=== PATIENT | male | born 1945 | race Caucasian/White ===

== ENCOUNTER 2016-10-03 18:35 | Observation (INO) | payer MEDICARE, OTHER ==
[2016-10-03] VITALS (9 sets, daily range): BP systolic 151–168; BP diastolic 82–95; PULSE 53–63; RESP 12–20; TEMP 97.9–98.1; O2SAT 98–99
[~2016-10-03] VITALS: Ht 170.2 cm; Wt 78.0 kg
[~2016-10-03 18:35] MED LIST: 1-ME1LIQ OR; ADVA100A INH; ASPI81TA82 PO; LISI10TA PO; NIAS10004 PO; NITR.4 SL; SIMV40TA OR
--- NOTE | 2016-10-03 19:26 | PD ---
HPI Chief Complaint: Chest Pain Time Seen by Provider: 18:59 Travel History International Travel<30 days: No Contact w/Intl Traveler<30days: No Traveled to known affect area: No History of Present Illness HPI A 71 year old male presents to the emergency department for chest pain. The pain started 2.5 hours ago while riding a stationary bike at physical therapy. The pain is directly over the sternum and described as feeling like he was "hit with a baseball" The pain does not radiate and has stayed the same since the onset. When the pain started he also was diaphoretic and had some shortness of breath. He denies nausea and vomiting. He was administered Nitro by EMS and took a baby aspirin earlier this morning, neither of which provided relief. The patient has a history of hypertension, hyperlipidemia, 2-3 previous heart attacks, and 2 bypass surgeries. 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 Patient denies any cough, nausea, vomiting, or abdominal pain. Symptoms are moderate, worse with riding a stationary bicycle, and there are no current alleviating factors. The patient's primary physician is Dr. Jaren De La Torre. History Past Medical History Narrative Medical 2-3 prior Myocardial infarctions 2 bypass surgeries Hypertension Hyperlipidemia Parkinson's disease Past Surgical History Narrative Surgical CABG Social History Alcohol Use: No Tobacco Use: No Allergies-Medications (Allergen,Severity, Reaction): Coded Allergies: Sulfa (Sulfonamide Antibiotics) (Unverified Allergy, Severe, "I CODED ON SULFA", 10/03/16) bethanechol (Unverified Allergy, Severe, "I CODED ON IT", 10/03/16) codeine (Unverified Allergy, Severe, NAUSEA AND VOMITING, 10/03/16) amoxicillin (Unverified Allergy, Intermediate, RASH, 10/03/16) Reported Meds & Prescriptions Reported Meds & Active Scripts Active Reported Hm Antacid 200-200-20 mg/5Ml (Alum & Mag Hydrox-Simethicone) 1 Ryanne Ryanne 30 Ml .XX Milk of Magnesia Liq (Magnesium Hydroxide) 400 Mg/5 Ml Susp 30 Ml PO DAILY PRN Bisacodyl Supp (Bisacodyl) 10 Mg Supp 10 Mg RECTAL DAILY PRN Tylenol (Acetaminophen) 325 Mg Tab 325 Mg PO Q6H PRN Carbidopa-Levodopa 25-100 Mg Tab 1 Tab PO Q8HR Simvastatin 20 Mg Tab 20 Mg PO HS Polyethylene Glycol 3350 Powder (Polyethylene Glycol) 17 Gm Pow 17 Gm PO DAILY Lasix (Furosemide) 40 Mg Tab 40 Mg PO DAILY Isosorbide Mononitrate ER (Isosorbide Mononitrate) 60 Mg Tab 60 Mg PO DAILY PRN Fenofibrate 145 Mg Tab 145 Mg PO DAILY Donepezil 10 Mg Tab 10 Mg PO HS Docusate Sodium 100 Mg Cap 100 Mg PO DAILY PRN Vitamin D (Cholecalciferol) 2,000 Unit Tab DAILY Amlodipine (Amlodipine Besylate) 10 Mg Tab 10 Mg PO EVERY OTHER DAY Spironolactone 25 Mg Tab 25 Mg PO DAILY Review of Systems Except as stated in HPI: all other systems reviewed are Neg General / Constitutional: Positive: Chills HENT: Positive: Lightheadedness Cardiovascular: Positive: Chest Pain or Discomfort, Diaphoresis Respiratory: Positive: Shortness of Breath Gastrointestinal: No: Nausea, Vomiting Musculoskeletal: Positive: Weakness Neurologic: Positive: Dizziness Physical Exam Narrative CONSTITUTIONAL/GENERAL: Well Developed and Well Nourished 71-year-old male who is in no acute respiratory distress. SKIN: No jaundice, rashes, or lesions. HEAD: Atraumatic. Normocephalic. EYES: No injection or drainage. ENT: Hearing grossly normal. Nose without bleeding or purulent drainage. Throat without visible erythema, exudates, masses, or lesions. NECK: Trachea midline. Supple, nontender. CARDIOVASCULAR: Regular rate and rhythm without murmurs, gallops, or rubs. No JVD. Peripheral pulses symmetric. Well-healed midline sternal scar. RESPIRATORY/CHEST: Symmetric, unlabored respirations. Clear to auscultation. Breath sounds equal bilaterally. No wheezes, rales, or rhonchi. tenderness to palpation directly over sternum. GASTROINTESTINAL: Abdomen soft, non-tender, nondistended. No rebound tenderness , guarding, or rigidity. GENITOURINARY: Without palpable bladder distension. MUSCULOSKELETAL: Extremities without clubbing, cyanosis, or edema. No calf tenderness. Data Data Last Documented VS Vital Signs Date Time Temp Pulse Resp B/P (MAP) Pulse Ox O2 Delivery O2 Flow Rate FiO2 10/03/16 20:01 99 Nasal Cannula 3.00 10/03/16 20:00 12 10/03/16 19:57 61 8/22/17 19:15 98.1 Orders Orders Complete Blood Count With Diff (10/03/16 19:15) Comprehensive Metabolic Panel (10/03/16 19:15) Troponin I (10/03/16 19:15) Electrocardiogram (10/03/16 ) Act Partial Throm Time (Ptt) (10/03/16 19:15) Magnesium (Mg) (10/03/16 19:41) Chest, Single Ap (10/03/16 19:41) Ecg Monitoring (10/03/16 19:41) Bilateral Bp Monitoring (10/03/16 19:41) Iv Access Insert/Monitor (10/03/16 19:41) Oximetry (10/03/16 19:41) Oxygen Administration (10/03/16 19:41) Aspirin Chew (Aspirin Chew) (10/03/16 19:45) Morphine Inj (Morphine Inj) (10/03/16 19:45) Nitroglycerin 2% Oint (Nitroglycerin 2% (10/03/16 19:45) Sodium Chloride 0.9% Flush (Ns Flush) (10/03/16 19:45) Sodium Chlorid 0.9% 500 Ml Inj (Ns 500 M (10/03/16 19:45) Labs Laboratory Tests Test 10/03/16 19:05 White Blood Count 7.4 TH/MM3 Red Blood Count 4.69 MIL/MM3 Hemoglobin 13.8 GM/DL Hematocrit 41.9 % Mean Corpuscular Volume 89.4 FL Mean Corpuscular Hemoglobin 29.5 PG Mean Corpuscular Hemoglobin Concent 33.0 % Red Cell Distribution Width 13.6 % Platelet Count 222 TH/MM3 Mean Platelet Volume 8.8 FL Neutrophils (%) (Auto) 60.8 % Lymphocytes (%) (Auto) 22.7 % Monocytes (%) (Auto) 12.6 % Eosinophils (%) (Auto) 3.0 % Basophils (%) (Auto) 0.9 % Neutrophils # (Auto) 4.5 TH/MM3 Lymphocytes # (Auto) 1.7 TH/MM3 Monocytes # (Auto) 0.9 TH/MM3 Eosinophils # (Auto) 0.2 TH/MM3 Basophils # (Auto) 0.1 TH/MM3 CBC Comment DIFF FINAL Differential Comment Activated Partial Thromboplast Time 27.8 SEC Blood Urea Nitrogen 19 MG/DL Creatinine 1.44 MG/DL Random Glucose 102 MG/DL Total Protein 7.0 GM/DL Albumin 3.8 GM/DL Calcium Level 9.1 MG/DL Alkaline Phosphatase 30 U/L Aspartate Amino Transf (AST/SGOT) 12 U/L Alanine Aminotransferase (ALT/SGPT) 8 U/L Total Bilirubin 0.3 MG/DL Sodium Level 136 MEQ/L Potassium Level 3.6 MEQ/L Chloride Level 102 MEQ/L Carbon Dioxide Level 26.9 MEQ/L Anion Gap 7 MEQ/L Estimat Glomerular Filtration Rate 48 ML/MIN Magnesium Level 2.2 MG/DL Troponin I LESS THAN 0.02 NG/ML MDM Medical Decision Making Medical Screen Exam Complete: Yes Emergency Medical Condition: Yes Medical Record Reviewed: Yes Interpretation(s) EKG reveals normal sinus rhythm with a rate of 64. Q wave noted in lead 3 and aVF. Left axis deviation. Laboratory Tests Test 10/03/16 19:05 White Blood Count 7.4 TH/MM3 Red Blood Count 4.69 MIL/MM3 Hemoglobin 13.8 GM/DL Hematocrit 41.9 % Mean Corpuscular Volume 89.4 FL Mean Corpuscular Hemoglobin 29.5 PG Mean Corpuscular Hemoglobin Concent 33.0 % Red Cell Distribution Width 13.6 % Platelet Count 222 TH/MM3 Mean Platelet Volume 8.8 FL Neutrophils (%) (Auto) 60.8 % Lymphocytes (%) (Auto) 22.7 % Monocytes (%) (Auto) 12.6 % Eosinophils (%) (Auto) 3.0 % Basophils (%) (Auto) 0.9 % Neutrophils # (Auto) 4.5 TH/MM3 Lymphocytes # (Auto) 1.7 TH/MM3 Monocytes # (Auto) 0.9 TH/MM3 Eosinophils # (Auto) 0.2 TH/MM3 Basophils # (Auto) 0.1 TH/MM3 CBC Comment DIFF FINAL Differential Comment Activated Partial Thromboplast Time 27.8 SEC Blood Urea Nitrogen 19 MG/DL Creatinine 1.44 MG/DL Random Glucose 102 MG/DL Total Protein 7.0 GM/DL Albumin 3.8 GM/DL Calcium Level 9.1 MG/DL Alkaline Phosphatase 30 U/L Aspartate Amino Transf (AST/SGOT) 12 U/L Alanine Aminotransferase (ALT/SGPT) 8 U/L Total Bilirubin 0.3 MG/DL Sodium Level 136 MEQ/L Potassium Level 3.6 MEQ/L Chloride Level 102 MEQ/L Carbon Dioxide Level 26.9 MEQ/L Anion Gap 7 MEQ/L Estimat Glomerular Filtration Rate 48 ML/MIN Magnesium Level 2.2 MG/DL Troponin I LESS THAN 0.02 NG/ML Chest x-ray reveals postoperative changes. Differential Diagnosis Differential diagnoses includes acute coronary syndrome, angina, pulmonary embolism, pneumonia, pericardial effusion, deconditioning. Narrative Course IV was established, labs are drawn and sent, and the patient was placed on cardiac telemetry monitoring and continuous pulse oximetry monitoring. The patient received aspirin 160 kg orally, Nitropaste, and IV fluids. Chest x- rays obtained. EKG was ordered and interpreted. Chest x-ray reveals postoperative changes. Initial troponin is negative. The patient has multiple risk factors with chest pain while riding a stationary bike, therefore, will be 23 hour observation to chest pain center for serial cardiac enzymes and further evaluation by cardiology. Physician Communication Physician Communication The patient will be 23 hour observation to chest pain center for serial cardiac enzymes and further evaluation by cardiology. Diagnosis Primary Impression: Chest pain Qualified Codes: R07.9 - Chest pain, unspecified Admitting Information Admitting Physician Requests: Observation Condition: Stable Lv Zambrano MD Oct 03, 2016 19:26
[2016-10-03] MEDS ORDERED: SPIR25TA PO (19:42)
[2016-10-03] MEDS ORDERED: ISOS60TA PO (19:42)
[2016-10-03] MEDS ORDERED: ALUM1SUS (19:42)
[2016-10-03] MEDS ORDERED: MILKSUS PO (19:42)
[2016-10-03] MEDS ORDERED: TYLE325T PO (19:42)
[2016-10-03] MEDS ORDERED: AMLO10TA2 PO (19:42)
[2016-10-03] MEDS ORDERED: FURO1TAB60 PO (19:42)
[2016-10-03] MEDS ORDERED: POLY17S PO (19:42)
[2016-10-03] MEDS ORDERED: FENO145T2 PO (19:42)
[2016-10-03] MEDS ORDERED: VITA20003 (19:42)
[2016-10-03] MEDS ORDERED: SIMV20TA PO (19:42)
[2016-10-03] MEDS ORDERED: DONE10TA7 PO (19:42)
[2016-10-03] MEDS ORDERED: BISA10SU3 RECTAL (19:42)
[2016-10-03] MEDS ORDERED: DOCU100C PO (19:42)
[2016-10-03] MEDS ORDERED: CARB25TA9 PO (19:42)
[2016-10-03] MEDS ORDERED: SODIUM CHLORID 0.9% 500 ML INJ 500 ML IV ONE (19:45)
[2016-10-03] MEDS ORDERED: SODIUM CHLORIDE 0.9% FLUSH 10 ML FLUSH IVF PRN (19:45)
[2016-10-03] MEDS ORDERED: MORPHINE SULFATE 4 MG/ML INJ IV PUSH ONE (19:45)
[2016-10-03] MEDS ORDERED: ASPIRIN 81 MG CHEW TAB PO ONE ×2 (19:45→21:15)
[2016-10-03] MEDS ORDERED: NITROGLYCERIN 2% OINT 1 GM PACKET TOP ONE (19:45)
[2016-10-03 19:48] LABS: AUTOMATED NEUTROPHIL # 4.5 TH/MM3 (1.8-7.7); BASOPHIL # 0.1 TH/MM3 (0-0.2); BASOPHIL % 0.9 % (0.0-2.0); EOSINOPHIL # 0.2 TH/MM3 (0-0.4); HEMATOCRIT 41.9 % (39.0-51.0); HEMO FLAGS DIFF FINAL; LYMPH % 22.7 % (9.0-44.0); LYMPHOCYTE # 1.7 TH/MM3 (1.0-4.8); MEAN CELL VOLUME 89.4 FL (80.0-100.0); MEAN CORPUSCULAR HEMOGLOBIN 29.5 PG (27.0-34.0); MONO % 12.6 % (0.0-8.0); NEUT % 60.8 % (16.0-70.0); PLATELET COUNT 222 TH/MM3 (150-450); RED BLOOD COUNT 4.69 MIL/MM3 (4.50-5.90); RED CELL DISTRIBUTION WIDTH 13.6 % (11.6-17.2); WHITE BLOOD COUNT 7.4 TH/MM3 (4.0-11.0)
[2016-10-03 19:53] LABS: APTT (PATIENT) 27.8 SEC (24.3-30.1)
[2016-10-03 20:14] LABS: ALKALINE PHOSPHATASE 30 U/L (45-117); ALT (GPT) 8 U/L (12-78); TOTAL BILIRUBIN ADULT 0.3 MG/DL (0.2-1.0)
[2016-10-03 20:20] LABS: ANION GAP 7 MEQ/L (5-15); AST (GOT) 12 U/L (15-37); BICARBONATE 26.9 MEQ/L (21.0-32.0); BLOOD UREA NITROGEN 19 MG/DL (7-18); CHLORIDE 102 MEQ/L (98-107); GLOMERULAR FILTRATION RATE 48 ML/MIN (>89); POTASSIUM 3.6 MEQ/L (3.5-5.1); SODIUM (NA) 136 MEQ/L (136-145)
--- NOTE | 2016-10-03 21:08 | RADRPT ---
EXAM DATE/TIME: 10/03/2016 19:58 [facility] COMPARISON: No previous studies available for comparison. INDICATIONS : Chest pain. MEDICAL HISTORY : Unobtainable. SURGICAL HISTORY : CABG. ENCOUNTER: Initial ACUITY: 1 day PAIN SCORE: 5/10 LOCATION: Bilateral chest FINDINGS: Portable AP view of the chest demonstrates a normal-sized cardiac silhouette in this patient post med damir sternotomy and CABG. Cardiac device overlies the left chest. No effusion, consolidation, or pneum othorax is identified. Bones and soft tissues demonstrate no acute finding. There has been prior bila teral shoulder arthroplasty. CONCLUSION: No acute cardiopulmonary abnormality is identified. Zi Flores MD on October 03, 2016 at 21:05 Board Certified Radiologist. This report was verified electronically.
[2016-10-03] MEDS ORDERED: ACETAMINOPHEN/HYDROcodone 325 MG/7.5 MG TAB PO PRN (21:15)
[2016-10-03] MEDS ORDERED: MORPHINE SULFATE 4 MG/ML INJ IV PRN (21:15)
[2016-10-03] MEDS ORDERED: NITROGLYCERIN 0.4 MG SL 25 TABS/BTL SL PRN (21:15)
[2016-10-03] MEDS ORDERED: ACETAMINOPHEN 500 MG CPLT PO PRN (21:15)
[2016-10-03] MEDS ORDERED: SODIUM CHLORIDE 0.9% FLUSH 10 ML FLUSH IV FLUSH PRN (21:15)
[2016-10-04] VITALS (7 sets, daily range): BP systolic 118–172; BP diastolic 77–87; PULSE 49–107; RESP 16–19; TEMP 97.7–98.3; O2SAT 93–98
[2016-10-04 00:23] LABS: CREATINE KINASE 85 U/L (39-308)
[2016-10-04 02:01] LABS: CREATINE KINASE 84 U/L (39-308)
--- NOTE | 2016-10-04 08:18 | HHI.HP ---
HPI Primary Care Physician Jaren De La Torre DO Chief Complaint Chest pain History of Present Illness 71-year-old male with known coronary artery disease, CABG 2 (6 years ago), Parkinson's disease, and hypertension presents to emergency room for further evaluation of chest pain. Onset 4:30 p.m. yesterday. Location substernal. Characterized as "like I was hit with a baseball." Pain came on quickly. Duration has been constant. Associated symptoms initially included shortness of breath and diaphoresis. No nausea or vomiting. Denies similar pain in the past stating past WI's for "silent." No known precipitating or relieving factors. 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 He attended physical therapy yesterday, rides a stationary bike. Reports chest pain-free during exercise and chest pain did not begin until 2 hours after therapy completed. Review of Systems General: No fatigue,weakness, fever, chills, recent illness, or change in appetite. Has been in his general state of health and currently in physical therapy for Parkinson's disease. HEENT: No WYMAN, no nasal congestion or drainage CV: Continues to have chest pressure as stated above. RESP: No SOB, cough, or sputum production GI: No nausea, vomiting, bowel changes, melena, or blood in the stool. : No dysuria EXT: No lower leg edema, no paraesthesias MS: No discomfort or change in ROM NEURO: History of Parkinson's disease. No LOC, motor/sensory deficits SKIN: No rashes, no concerning lesions Past Family Social History Allergies: Coded Allergies: Sulfa (Sulfonamide Antibiotics) (Unverified Allergy, Severe, "I CODED ON SULFA", 10/03/16) bethanechol (Unverified Allergy, Severe, "I CODED ON IT", 10/03/16) codeine (Unverified Allergy, Severe, NAUSEA AND VOMITING, 10/03/16) amoxicillin (Unverified Allergy, Intermediate, RASH, 10/03/16) Past Medical History Hypertension, coronary artery disease, asthma, Parkinson's disease, hyperlipidemia, WI 2 Past Surgical History CABG 2 (6 years ago) Reported Medications Active Reported Hm Antacid 200-200-20 mg/5Ml (Alum & Mag Hydrox-Simethicone) 1 Ryanne Ryanne 30 Ml .XX Milk of Magnesia Liq (Magnesium Hydroxide) 400 Mg/5 Ml Susp 30 Ml PO DAILY PRN Bisacodyl Supp (Bisacodyl) 10 Mg Supp 10 Mg RECTAL DAILY PRN Tylenol (Acetaminophen) 325 Mg Tab 325 Mg PO Q6H PRN Carbidopa-Levodopa 25-100 Mg Tab 1 Tab PO Q8HR Simvastatin 20 Mg Tab 20 Mg PO HS Polyethylene Glycol 3350 Powder (Polyethylene Glycol) 17 Gm Pow 17 Gm PO DAILY Lasix (Furosemide) 40 Mg Tab 40 Mg PO DAILY Isosorbide Mononitrate ER (Isosorbide Mononitrate) 60 Mg Tab 60 Mg PO DAILY PRN Fenofibrate 145 Mg Tab 145 Mg PO DAILY Donepezil 10 Mg Tab 10 Mg PO HS Docusate Sodium 100 Mg Cap 100 Mg PO DAILY PRN Vitamin D (Cholecalciferol) 2,000 Unit Tab DAILY Amlodipine (Amlodipine Besylate) 10 Mg Tab 10 Mg PO EVERY OTHER DAY Spironolactone 25 Mg Tab 25 Mg PO DAILY Active Ordered Medications Current Medications Medications (Trade) Dose Ordered Sig/Isabelle Route Start Time Stop Time Status Last Admin (NS Flush) 2 ml UNSCH PRN IV FLUSH 10/03/16 21:15 (NS Flush) 2 ml BID IV FLUSH 10/04/16 09:00 (Tylenol) 500 mg Q4H PRN PO 10/03/16 21:15 ([place] 7.5-325 Mg) 1 tab Q4H PRN PO 10/03/16 21:15 (Morphine Inj) 2 mg Q4H PRN IV 10/03/16 21:15 (Nitrostat Sl) 0.4 mg Q5M PRN SL 10/03/16 21:15 10/04/16 00:47 Family History Social History Known coronary artery disease, hypertension and hyperlipidemia. No known diabetes. Lifelong nonsmoker. Denies any alcohol or illegal drug use. Resides at [facility]. Past Cardiac Testing 07/08/2014 Acostaiscan (Completed at Dr. Abilio Figueroa office)-unremarkable study (spoke with nurse at Dr. Figueroa's office) Has an appointment scheduled for 2016 Physical Exam Vital Signs Vital Signs Date Time Temp Pulse Resp B/P (MAP) Pulse Ox O2 Delivery O2 Flow Rate FiO2 10/04/16 07:50 93 21 10/04/16 04:33 97.7 49 18 166/79 (108) 98 10/04/16 03:53 51 10/04/16 00:52 18 10/04/16 00:16 55 10/03/16 23:46 98.1 53 20 164/92 (116) 98 10/03/16 23:17 10/03/16 22:45 58 12 157/95 (115) 98 Nasal Cannula 2.00 10/03/16 22:15 98 Nasal Cannula 2.00 10/03/16 22:00 54 12 168/91 (116) 99 Nasal Cannula 3.00 10/03/16 21:00 54 12 154/83 (106) 99 Nasal Cannula 3.00 10/03/16 20:01 99 Nasal Cannula 3.00 10/03/16 20:00 12 99 Nasal Cannula 3.00 10/03/16 20:00 60 12 152/91 (111) 99 Nasal Cannula 3.00 10/03/16 19:57 61 152/91 (111) 10/03/16 19:15 98.1 60 12 151/84 (106) 98 Nasal Cannula 3.00 10/03/16 19:07 100 3.00 10/03/16 18:54 97.9 63 14 152/82 (105) 99 Nasal Cannula 4.00 Physical Exam GENERAL: Alert WN, WD, NAD, pleasant, elderly male HEAD: NC, AT EYES: Sclera clear, conjunctiva without injection, pupils equal and round ENT: Mucous membranes pink and moist CV: RRR, without murmur, rub, gallop, no JVD, S1-S2 no S3-S4. RESP: Clear lungs throughout bilateral, no crackles, wheeze, rhonchi, symmetrical chest rise, nonlabored, able to speak in full sentences ABD: Soft, NT, ND, no masses, positive bowel tones EXT: Pulses +24, trace dependent edema MS: Normal tone 4 extremities, nontender, no obvious deformities, full range of motion NEURO: CN II through CN XII grossly intact, fine tremors left hand, slow in answering questions PSYCH: A+O 3, pleasant affect, appropriate speech, appropriate mood and affect , insight and judgment SKIN: Normal turgor, normal texture, no lesions, no rashes, brisk cap refill Laboratory Laboratory Tests Test 10/03/16 19:05 10/03/16 22:45 10/04/16 00:37 White Blood Count 7.4 Red Blood Count 4.69 Hemoglobin 13.8 Hematocrit 41.9 Mean Corpuscular Volume 89.4 Mean Corpuscular Hemoglobin 29.5 Mean Corpuscular Hemoglobin Concent 33.0 Red Cell Distribution Width 13.6 Platelet Count 222 Mean Platelet Volume 8.8 Neutrophils (%) (Auto) 60.8 Lymphocytes (%) (Auto) 22.7 Monocytes (%) (Auto) 12.6 Eosinophils (%) (Auto) 3.0 Basophils (%) (Auto) 0.9 Neutrophils # (Auto) 4.5 Lymphocytes # (Auto) 1.7 Monocytes # (Auto) 0.9 Eosinophils # (Auto) 0.2 Basophils # (Auto) 0.1 CBC Comment DIFF FINAL Differential Comment Activated Partial Thromboplast Time 27.8 Blood Urea Nitrogen 19 Creatinine 1.44 Random Glucose 102 Total Protein 7.0 Albumin 3.8 Calcium Level 9.1 Alkaline Phosphatase 30 Aspartate Amino Transf (AST/SGOT) 12 Alanine Aminotransferase (ALT/SGPT) 8 Total Bilirubin 0.3 Sodium Level 136 Potassium Level 3.6 Chloride Level 102 Carbon Dioxide Level 26.9 Anion Gap 7 Estimat Glomerular Filtration Rate 48 Magnesium Level 2.2 Troponin I LESS THAN 0.02 LESS THAN 0.02 LESS THAN 0.02 Total Creatine Kinase 85 84 Result Diagram: 10/03/16190410/03/161904 Imaging Last Impressions Chest X-Ray 10/03/161940 Signed Impressions: Service Date/Time: Monday, October 03, 2016 19:58 - CONCLUSION: No acute cardiopulmonary abnormality is identified. Zi Flores MD Course EKG Normal sinus rhythm, nonspecific ST changes, inferior wall WI Caprini VTE Risk Assessment Caprini VTE Risk Assessment: No/Low Risk (score <= 1) Caprini Risk Assessment Model Point Value = 1 Point Value = 2 Point Value = 3 Point Value = 5 Age 41-60 Minor surgery BMI > 25 kg/m2 Swollen legs Varicose veins or History of unexplained or recurrent spontaneous Oral contraceptives or hormone replacement Sepsis (< 1 month) Serious lung disease, including pneumonia (< 1 month) Abnormal pulmonary function Acute myocardial infarction Congestive heart failure (< 1 month) History of inflammatory bowel disease Medical patient at bed rest Age 61-74 Arthroscopic surgery Major open surgery (> 45 min) Laparoscopic surgery (> 45 min) Malignancy Confined to bed (> 72 hours) Immobilizing plaster cast Central venous access Age >= 75 History of VTE Family history of VTE Factor V Leiden Prothrombin [id number] Lupus anticoagulant Anticardiolipin antibodies Elevated serum homocysteine Heparin-induced thrombocytopenia Other congenital or acquired thrombophilia Stroke (< 1 month) Elective arthroplasty Hip, pelvis, or leg fracture Acute spinal cord injury (< 1 month) Prophylaxis Regimen Total Risk Factor Score Risk Level Prophylaxis Regimen 0-1 Low Early ambulation 2 Moderate Order ONE of the following: *Sequential Compression Device (SCD) *Heparin 5000 units SQ BID 3-4 Higher Order ONE of the following medications: *Heparin 5000 units SQ TID *Enoxaparin/Lovenox 40 mg SQ daily (WT < 150 kg, CrCl > 30 mL/min) *Enoxaparin/Lovenox 30 mg SQ daily (WT < 150 kg, CrCl > 10-29 mL/min) *Enoxaparin/Lovenox 30 mg SQ BID (WT < 150 kg, CrCl > 30 mL/min) AND/OR *Sequential Compression Device (SCD) 5 or more Highest Order ONE of the following medications: *Heparin 5000 units SQ TID (Preferred with Epidurals) *Enoxaparin/Lovenox 40 mg SQ daily (WT < 150 kg, CrCl > 30 mL/min) *Enoxaparin/Lovenox 30 mg SQ daily (WT < 150 kg, CrCl > 10-29 mL/min) *Enoxaparin/Lovenox 30 mg SQ BID (WT < 150 kg, CrCl > 30 mL/min) AND *Sequential Compression Device (SCD) Assessment and Plan Assessment and Plan #1 Atypical chest pain-admitted to chest pain center. Ruled out with 3 sets of EKGs, cardiac enzymes, and monitored overnight. Seen and evaluated by Dr. Darlyn Giron. Will most likely proceed with chemical stress test after speaking with Dr. Figueroa's office to determine when chemical stress test was completed. Patient agreeable plan of care. #2 History of CAD-continue Imdur, amlodipine, simvastatin, fenofibrate, and aspirin #3 Parkinson's disease-continue Carbidopa-Levodopa, donepezil #4 Hypertension-monitor, continue spironolactone and furosemide 09:[address] Figueroa's nurse, most recent stress test June 2014. Nurse will notify Dr. Figueroa of patient's arrival to chest pain center and that we will complete a nuclear scan before discharge. Marisol Vallecillo Oct 04, 2016 08:18
[2016-10-04] MEDS ORDERED: SODIUM CHLORIDE 0.9% FLUSH 10 ML FLUSH IV FLUSH SCH (09:00)
[2016-10-04] MEDS ORDERED: FENOFIBRATE 145 MG TAB PO SCH (09:45)
[2016-10-04] MEDS ORDERED: DOCUSATE SODIUM 100 MG CAP PO PRN (09:45)
[2016-10-04] MEDS ORDERED: FUROSEMIDE 40 MG TAB PO SCH (09:45)
[2016-10-04] MEDS ORDERED: SPIRONOLACTONE 25 MG TAB PO SCH (09:45)
[2016-10-04] MEDS ORDERED: ISOSORBIDE MONONITRATE 60 MG TAB PO PRN (09:45)
[2016-10-04] MEDS ORDERED: REGADENOSON INJ 0.4 MG/5 ML SYR ONE (13:15)
[2016-10-04] MEDS ORDERED: CARBIDOPA/LEVODOPA 25 MG/100 MG TAB PO SCH (14:00)
--- NOTE | 2016-10-04 14:51 | RADRPT ---
EXAM DATE/TIME: 10/04/2016 12:32 [facility] COMPARISON: No previous studies available for comparison. INDICATIONS : Substernal chest pain. Angina. DOSE: 25.4 mCi Tc99m Myoview at stress. 8.1 mCi Tc99m Myoview at rest. 0.4 mg Lexiscan STRESS SYMPTOMS: Facial flush. EJECTION FRACTION: 62% MEDICAL HISTORY : Hypertension. SURGICAL HISTORY : Colon resection. CABG ENCOUNTER: Initial ACUITY: 1 day PAIN SCALE: 2/10 LOCATION: Substernal chest TECHNIQUE: The patient underwent pharmacologic stress with infusion of prescribed dose. Continuous ECG tracing was monitored during stress. Gated SPECT imaging was performed after stress and conventional SPECT i maging was performed at rest. The examination was performed on a SPECT/CT scanner, both attenuation and non-corrected datasets were reviewed. FINDINGS: DISTRIBUTION: The maximum perfused segment at stress is in the anterior wall. PERFUSION STUDY: The pattern of perfusion at stress is within normal limits. GATED STUDY: There is intact wall motion and thickening without hypokinetic or dyskinetic segments. CONCLUSION: 1. No focal perfusion stress-induced perfusion defect. 2. No focal wall motion abnormality with EF of 62%. RISK CATEGORY: Low (<1% Annual Mortality Rate) Anival Caputo MD on October 04, 2016 at 14:48 Board Certified Radiologist. This report was verified electronically.
--- NOTE | 2016-10-04 15:18 | HHI.DCPOC ---
Discharge Care Plan Diagnosis: (1) Atypical chest pain (2) Hx of coronary artery disease Goals to Promote Your Health * To prevent worsening of your condition and complications * To maintain your health at the optimal level Directions to Meet Your Goals Take your medications as prescribed Follow your dietary instruction Follow activity as directed Keep your appointments as scheduled Take your immunizations and boosters as scheduled If your symptoms worsen call your PCP, if no PCP go to Urgent Care Center or Emergency Room Smoking is Dangerous to Your Health. Avoid second hand smoke Call the 24-hour hour crisis hotline for domestic abuse at Marisol Valleicllo Oct 04, 2016 15:18
--- NOTE | 2016-10-04 17:41 | TR ---
Date Performed: 10/04/2016 Time Performed: 13:20:37 DOCTOR: Darlyn Giron DRUG LIST: CLINICAL HISTORY: CHEST PAIN REASON FOR TEST: CHEST PAIN REASON FOR ENDING: OBSERVATION: CONCLUSION: Lexiscan stress test was performed under standard four minute protocol. Radionuclid e was injected one minute prior to ending the test. No electrocardiographic abormalities were present to suggest ischemia. Nuclear imaging and interpretation are pending. COMMENTS:
--- NOTE | 2016-10-04 17:48 | EKG ---
Date Performed: 10/04/2016 Time Performed: 01:15:40 PTAGE: 71 years EKG: SINUS BRADYCARDIA INFERIOR MYOCARDIAL INFARCTION ABNORMAL ECG Since PREVIOUS TRACING , no significant change noted PREVIOUS TRACIN10/04/2016 00.45 DOCTOR: Darlyn Giron Interpretating Date/Time 10/04/2016 17:46:40
--- NOTE | 2016-10-04 17:50 | EKG ---
Date Performed: 10/03/2016 Time Performed: 22:56:26 PTAGE: 71 years EKG: SINUS BRADYCARDIA INFERIOR MYOCARDIAL INFARCTION ANTEROSEPTAL MYOCARDIAL INFARCTION ABNORMA L ECG Since PREVIOUS TRACING , no significant change noted PREVIOUS TRACIN10/03/2016 18.47 DOCTOR: Darlyn Giron Interpretating Date/Time 10/04/2016 17:48:09
--- NOTE | 2016-10-04 17:50 | EKG ---
Date Performed: 10/03/2016 Time Performed: 18:47:00 PTAGE: 71 years EKG: Sinus rhythm PATTERN CONSISTENT WITH PULMONARY DISEASE INFERIOR MYOCARDIAL INFARCTION ABNORMAL ECG artifact NO PREVIOUS TRACING DOCTOR: Darlyn Giron Interpretating Date/Time 10/04/2016 17:48:30
[2016-10-04] MEDS ORDERED: DONEPEZIL HCL 5 MG TAB PO SCH (21:00)
[2016-10-04] MEDS ORDERED: PRAVASTATIN SOD 40 MG TAB PO SCH (21:00)
== END 2016-10-04 18:36 | disposition home or self-care (01) ==
LOC: NEPE 18:35 → NEDA 20:59 → INTOOBSV 20:59 → NEPHCDU 23:20 → UNDODISIN 10-04 18:36
PROVIDERS: ADMIT Internal Medicine Interventional Cardiology; ATTEND Internal Medicine Interventional Cardiology
DX: R07.9 Chest pain, unspecified (principal); I25.10 Atherosclerotic heart disease of native coronary artery without angina pectoris; I10 Essential (primary) hypertension; E78.5 Hyperlipidemia, unspecified; J45.909 Unspecified asthma, uncomplicated; G20 Parkinson's disease; Z95.1 Presence of aortocoronary bypass graft
CPT/HCPCS: 71010; 78452; 80053; 82550; 83735; 84484; 85025; 85730; 93005; 93017; 96361; 96374; 99285; A9502; G0378; J2270; J2785; J7040